=== PATIENT | male | born 1965 | race Caucasian/White ===

== ENCOUNTER 2017-04-21 15:36 | Inpatient (IN) | payer OTHER ==
[~2017-04-21] VITALS: Ht 175.3 cm; Wt 111.1 kg
[~2017-04-21 15:36] MED LIST: ADULT LOW DOSE81 MG PO; ALPRAZOLAM0.5 MG; ALPRAZOLAM0.5 MG PO; ANAFRANIL 25MG25 MG PO; ANAFRANIL25 MG PO; CHRONULAC20 GM/30 M PO; METOPROLOL TART25 MG PO; PAROXETINE HCL40 MG PO; PROTONIX20 MG PO
[2017-04-21 16:34] LABS: HEMOGLOBIN 14.8 gm/dl (14.0-17.5); RED BLOOD COUNT 4.64 M/UL (4.20-5.50); WHITE BLOOD COUNT 12.2 K/UL (4.5-11.0)
[2017-04-21 16:56] LABS: BUN/CREATININE RATIO 9 (0-10)
[2017-04-21 23:31] LABS: BUN/CREATININE RATIO 11 (0-10)
[2017-04-22 04:59] LABS: HEMOGLOBIN 15.1 gm/dl (14.0-17.5); RED BLOOD COUNT 4.78 M/UL (4.20-5.50)
[2017-04-22 05:06] LABS: WHITE BLOOD COUNT 15.3 K/UL (4.5-11.0)
[2017-04-22 05:19] LABS: BUN/CREATININE RATIO 13 (0-10)
[2017-04-23 03:38] LABS: HEMOGLOBIN 13.1 gm/dl (14.0-17.5); RED BLOOD COUNT 4.1 M/UL (4.20-5.50)
[2017-04-23 03:49] LABS: BUN/CREATININE RATIO 11 (0-10)
[2017-04-24 05:18] LABS: ACINETOBACTER BAUMANNII Not Detected (Negative); CANDIDA ALBICANS Not Detected (Negative); CANDIDA KRUSEI Not Detected (Negative); CANDIDA TROPICALIS Not Detected (Negative); ENTEROCOCCUS Not Detected (Negative); ESCHERICHIA COLI Not Detected (Negative); HAEMOPHILUS INFLUENZAE Not Detected (Negative); KLEBSIELLA OXYTOCA Not Detected (Negative); KLEBSIELLA PNEUMONIAE Not Detected (Negative); KPC-CARBAPENEM-RESISTANCE GENE Not Detected (Negative); PROTEUS Not Detected (Negative); PSEUDOMONAS AERUGINOSA Not Detected (Negative); SERRATIA MARCESANS Not Detected (Negative); STAPHYLOCOCCUS AUREUS Not Detected (Negative); STREP AGALACTIAE (GROUP B) Not Detected (Negative); STREP PYOGENES (GROUP A) Not Detected (Negative); STREPTOCOCCUS Not Detected (Negative); vanA/B (VANCOMYCIN RESIST GENE Not Detected (Negative)
[2017-04-24 06:17] LABS: BUN/CREATININE RATIO 13 (0-10)
[2017-04-24 06:28] LABS: HEMOGLOBIN 11.4 gm/dl (14.0-17.5)
[2017-04-24 06:40] LABS: RED BLOOD COUNT 3.64 M/UL (4.20-5.50); WHITE BLOOD COUNT 10.3 K/UL (4.5-11.0)
[2017-04-24 07:25] LABS: mecA (METHICILLIN RESIST GENE DETECTED (Negative)
[2017-04-24 07:26] LABS: STAPHYLOCOCCUS DETECTED (Negative)
[2017-04-26] MEDS ORDERED: LEVAQUIN750 MG PO (18:21)
[2017-04-26] MEDS ORDERED: COLACE 100MG C100 MG PO (18:21)
[2017-04-26] MEDS ORDERED: GLUCOPHAGE 500500 MG PO (18:22)
[2017-04-26] MEDS ORDERED: LEVEMIR100 UNIT/1 SC (18:23)
== END 2017-04-26 18:48 | disposition home or self-care (01) | DRG 439 ==
LOC: ER1 15:36 → ZEROF 18:43 → MED SURG 4 18:43
PROVIDERS: Emergency Medicine; Hospitalist; Internal Medicine; Internal Medicine Gastroenterology; ADMIT Internal Medicine Infectious Disease
DX: K85.90 Acute pancreatitis without necrosis or infection, unspecified (principal); E87.1 Hypo-osmolality and hyponatremia; E66.2 Morbid (severe) obesity with alveolar hypoventilation; R65.10 Systemic inflammatory response syndrome (SIRS) of non-infectious origin without acute organ dysfunction; I10 Essential (primary) hypertension; E11.65 Type 2 diabetes mellitus with hyperglycemia; E87.5 Hyperkalemia; R07.9 Chest pain, unspecified; E78.5 Hyperlipidemia, unspecified; E88.81 Metabolic syndrome and other insulin resistance; R00.0 Tachycardia, unspecified; F41.1 Generalized anxiety disorder; F32.9 Major depressive disorder, single episode, unspecified; K86.1 Other chronic pancreatitis; Z68.36 Body mass index [BMI] 36.0-36.9, adult
CPT/HCPCS: ECHO; 36415; 80048; 80053; 80061; 80307; 82150; 82248; 82550; 82553; 82962; 83036; 83540; 83690; 83735; 84100; 84439; 84443; 84484; 85025; 85027; 87040; 87077; 87150; 87186; 93005; 93306; 96361; 96374; 99285; C9113; J1335; J1650; J1815; J2270; J2405; J7030; J7050; Q9962

== ENCOUNTER 2020-12-05 17:54 | Emergency (ER) | payer OTHER ==
[~2020-12-05 17:54] MED LIST changes: +COLACE 100MG C100 MG PO; +GLUCOPHAGE 500500 MG PO; +LEVAQUIN750 MG PO; +LEVEMIR100 UNIT/1 SC
[2020-12-05 19:13] LABS: HEMOGLOBIN 12.9 gm/dl (14.0-17.5); RED BLOOD COUNT 4.2 M/UL (4.20-5.50); WHITE BLOOD COUNT 8.3 K/UL (4.5-11.0)
[2020-12-05 19:41] LABS: BUN/CREATININE RATIO 11 (0-10)
== END 2020-12-06 03:30 | disposition home or self-care (01) ==
LOC: ER1 17:54
PROVIDERS: Family Medicine
DX: T50.991A Poisoning by other drugs, medicaments and biological substances, accidental (unintentional), initial encounter (principal); F19.10 Other psychoactive substance abuse, uncomplicated; X58.XXXA Exposure to other specified factors, initial encounter
CPT/HCPCS: 71045; 73610; 80053; 80307; 82550; 82553; 83874; 84484; 85025; 85610; 93005; 99285; G0480

== ENCOUNTER 2020-12-21 11:50 | Emergency (ER) | payer OTHER ==
[2020-12-21 13:35] LABS: HEMOGLOBIN 12.5 gm/dl (14.0-17.5); RED BLOOD COUNT 3.86 M/UL (4.20-5.50); WHITE BLOOD COUNT 4.9 K/UL (4.5-11.0)
[2020-12-21 14:43] LABS: BUN/CREATININE RATIO 9 (0-10)
[2020-12-21] MEDS ORDERED: ZOFRAN ODT 4 MG4 MG PO (16:27)
[2020-12-21] MEDS ORDERED: PROAIR DIGIHAL90 MCG INH (16:27)
== END 2020-12-21 16:45 | disposition home or self-care (01) ==
LOC: ER1 11:50
PROVIDERS: Emergency Medicine
DX: B34.9 Viral infection, unspecified (principal); I10 Essential (primary) hypertension; Z20.822 Contact with and (suspected) exposure to COVID-19
CPT/HCPCS: 0240U; 70450; 71045; 80053; 81001; 83605; 83690; 85025; 96374; 99284; J2405

== ENCOUNTER 2021-05-22 19:08 | Emergency (ER) | payer OTHER ==
[~2021-05-22 19:08] MED LIST changes: +PROAIR DIGIHAL90 MCG INH; +ZOFRAN ODT 4 MG4 MG PO
[2021-05-22 19:26] LABS: HEMOGLOBIN 12.4 gm/dl (14.0-17.5); RED BLOOD COUNT 3.79 M/UL (4.20-5.50); WHITE BLOOD COUNT 7.6 K/UL (4.5-11.0)
[2021-05-22 19:56] LABS: BUN/CREATININE RATIO 11 (0-10)
== END 2021-05-22 21:48 | disposition home or self-care (01) ==
LOC: ER1 19:08
PROVIDERS: Family Medicine
DX: E11.9 Type 2 diabetes mellitus without complications (principal); R53.1 Weakness; Z20.822 Contact with and (suspected) exposure to COVID-19; I10 Essential (primary) hypertension; F17.200 Nicotine dependence, unspecified, uncomplicated; Z79.4 Long term (current) use of insulin
CPT/HCPCS: 71045; 80053; 82009; 82550; 82553; 83605; 83735; 83874; 84439; 84443; 84484; 85025; 93005; 99285; G0480; U0002

== ENCOUNTER 2022-02-06 19:07 | Emergency (ER) | payer OTHER ==
[~2022-02-06 19:07] MED LIST changes: +LANTUS SOL100 UNIT/1 SQ; -LEVEMIR100 UNIT/1 SC
[2022-02-06 20:49] LABS: RED BLOOD COUNT 4.33 M/UL (4.20-5.50)
[2022-02-06 21:23] LABS: BUN/CREATININE RATIO 10 (0-10)
[2022-02-06] MEDS ORDERED: BENTYL 20MG TAB20 MG PO (23:33)
[2022-02-06] MEDS ORDERED: ZOFRAN ODT 4 MG4 MG PO (23:33)
== END 2022-02-06 23:55 | disposition home or self-care (01) ==
LOC: ER1 19:07
PROVIDERS: Student in an Organized Health Care Education/Training Program
DX: R10.31 Right lower quadrant pain (principal); R10.813 Right lower quadrant abdominal tenderness; R31.9 Hematuria, unspecified; E11.9 Type 2 diabetes mellitus without complications; Z90.49 Acquired absence of other specified parts of digestive tract
CPT/HCPCS: 80053; 81001; 85025; 87086; 96361; 96374; 96375; 99284; J1885; J2270; J2405; Q9967

== ENCOUNTER 2022-02-09 18:48 | Observation (INO) | payer OTHER ==
[~2022-02-09] VITALS: Ht 175.3 cm; Wt 89.8 kg
[~2022-02-09 18:48] MED LIST changes: +BENTYL 20MG TAB20 MG PO
[2022-02-09 19:27] LABS: HEMOGLOBIN 11.8 gm/dl (14.0-17.5); RED BLOOD COUNT 3.7 M/UL (4.20-5.50); WHITE BLOOD COUNT 8.1 K/UL (4.5-11.0)
[2022-02-10 04:56] LABS: HEMOGLOBIN 12.2 gm/dl (14.0-17.5); RED BLOOD COUNT 3.87 M/UL (4.20-5.50)
[2022-02-10 05:02] LABS: WHITE BLOOD COUNT 5.3 K/UL (4.5-11.0)
[2022-02-10 05:16] LABS: BUN/CREATININE RATIO 17 (0-10)
[2022-02-10] MEDS ORDERED: QUETIAPINE FUMA50 MG PO (11:28)
[2022-02-10] MEDS ORDERED: LOSARTAN POTASS50 MG PO (11:29)
[2022-02-10] MEDS ORDERED: LANTUS SOL100 UNIT/1 SQ (11:31)
[2022-02-10] MEDS ORDERED: ATORVASTATIN CA10 MG PO (11:33)
[2022-02-10] MEDS ORDERED: MIRTAZAPINE15 MG PO (11:33)
[2022-02-11 06:53] LABS: HEMOGLOBIN 11.7 gm/dl (14.0-17.5); RED BLOOD COUNT 3.66 M/UL (4.20-5.50)
[2022-02-11 06:54] LABS: WHITE BLOOD COUNT 10.4 K/UL (4.5-11.0)
[2022-02-11 07:02] LABS: BUN/CREATININE RATIO 21 (0-10)
[2022-02-11] MEDS ORDERED: FLOMAX 0.4 MG0.4 MG PO (09:40)
[2022-02-11] MEDS ORDERED: PREDNISONE10 MG PO (09:46)
[2022-02-11] MEDS ORDERED: PROTONIX40 MG PO (09:55)
[2022-02-11 10:04] LABS: BODY FLUID SOURCE BRONCHIAL LAVAGE
== END 2022-02-11 11:36 | disposition home or self-care (01) ==
LOC: ER1 18:48 → CDU 21:02 → MED SURG 4 21:02
PROVIDERS: Emergency Medicine; Internal Medicine; Physician Assistant; ADMIT Internal Medicine
DX: T59.811A Toxic effect of smoke, accidental (unintentional), initial encounter (principal); J70.5 Respiratory conditions due to smoke inhalation; I10 Essential (primary) hypertension; E11.9 Type 2 diabetes mellitus without complications; K21.9 Gastro-esophageal reflux disease without esophagitis; F41.9 Anxiety disorder, unspecified; E87.6 Hypokalemia; Z87.891 Personal history of nicotine dependence; Z79.4 Long term (current) use of insulin; Z79.891 Long term (current) use of opiate analgesic; Z79.899 Other long term (current) drug therapy
CPT/HCPCS: 36415; 36600; 70450; 71045; 72100; 73610; 80048; 80053; 81001; 82550; 82553; 82805; 82962; 83605; 83735; 84484; 85025; 85610; 85730; 87070; 87077; 87186; 87205; 89051; 93005; 94640; 94664; 94760; 96365; 96366; 96372; 96374; 96375; 96376; 99285; G0378; J0330; J1650; J1885; J2250; J2270; J2704; J2920; J2930; J3480